=== PATIENT | male | born 1955 | race Caucasian/White ===

== ENCOUNTER 2018-04-02 19:30 | Emergency (ER) | payer MEDICAID ==
[~2018-04-02] VITALS: Ht 177.8 cm; Wt 77.1 kg
[2018-04-02] MEDS ORDERED: SODIUM BICARBONATE 8.4% INJ 50ML SYRINGE IV ONE (19:31)
[2018-04-02] MEDS ORDERED: CALCIUM CHLOR(10%) 100MG/ML 10ML SYRINGE IV ONE (19:31)
[2018-04-02] MEDS ORDERED: ATROPINE SULF 1 MG/10ml SYR IV ONE (19:31)
[2018-04-02] MEDS ORDERED: EPINEPHrine HCL 1 MG/10 ML SYRG IV ONE (19:31)
[2018-04-02] MEDS ORDERED: D5W 5% 100 ML BAG IV ONE (19:31)
[2018-04-02] MEDS ORDERED: SODIUM BICARBONATE 8.4% INJ 50ML SYRINGE ONE (19:41)
[2018-04-02] MEDS ORDERED: NOREPINEPHRINE 8 MG/250ML KIT 250 ML IV ONE (19:48)
[2018-04-02] MEDS ORDERED: EPINEPHrine HCL 1 MG/10 ML SYRG ONE (19:56)
[2018-04-02 19:59] LABS: Basophils # (auto) 0 uL; Eosinophils # (auto) 0 uL; Hemoglobin 14.2 g/dL (13.5-17.5); Neutrophils # (auto) 2.7 uL
[2018-04-02 20:01] LABS: Basophils % (auto) 0.5 % (0.0-2.0); Eosinophils % (auto) 0.5 % (0.0-7.0); Hematocrit 44.8 % (41.0-53.0); Lymphocytes % (auto) 45.9 % (10.0-50.0); Mean Corpuscular Hemoglobin 34.1 pg (28.0-32.0); Mean Corpuscular Hgb Conc. 31.6 g/dL (32.0-36.0); Mean Corpuscular Volume 107.7 fL (80.0-100.0); Monocytes # (auto) 0.7 uL; Monocytes % (auto) 11.4 % (0.0-12.0); Neutrophils % (auto) 41.7 % (37.0-80.0); Nucleated Red Blood Cells % 0.7 %; Platelet Count (auto) 83 10^3/uL (140-450); Red Blood Cells 4.16 10^6/uL (4.5-5.90); Red Cell Distribution Width 14.4 % (11.8-14.3); White Blood Cell 6.4 10^3/uL (4.4-10.8)
[2018-04-02 20:03] VITALS: BP 52/32
[2018-04-02 20:07] LABS: Urine Bacteria NONE SEEN /hpf (None Seen); Urine Blood Negative /uL (Negative); Urine Mucus FEW (None Seen); Urine Specific Gravity 1.024 (1.001-1.035); Urine Sperm PRESENT /hpf (None Seen); Urine WBC 4 /hpf (0 - 3)
[2018-04-02 20:16] LABS: Albumin 3.4 g/dL (3.4-5.0); BUN/Creatinine Ratio 14.8; Calcium 8.9 mg/dL (8.5-10.1); Potassium 4.7 mmol/L (3.5-5.1)
[2018-04-02 20:21] LABS: Bilirubin, Total 2.4 mg/dL (0.2-1.0); Total Protein 7.3 g/dL (6.4-8.2)
[2018-04-02 20:21] LABS: Amphetamine Screen, Urine POSITIVE (NEGATIVE); Barbiturate Scree,Urine NEGATIVE (NEGATIVE); Benzodiazephine Screen, Urine NEGATIVE (NEGATIVE); Cannabinoid Screen, Urine POSITIVE (NEGATIVE); Cocaine Screen, Urine NEGATIVE (NEGATIVE); Opiate Scree,Urine NEGATIVE (NEGATIVE); Phencyclidine Screen, Urine NEGATIVE (NEGATIVE)
[2018-04-02 20:26] LABS: INR 1.46 (0.9-1.15)
[2018-04-02] MEDS ORDERED: NOREPINEPHRINE 8 MG/250ML KIT 250 ML IV SCH (21:00)
== END 2018-04-03 01:39 ==
LOC: ER 19:30
DX: I46.9 Cardiac arrest, cause unspecified (principal); I11.0 Hypertensive heart disease with heart failure; I50.9 Heart failure, unspecified; F41.9 Anxiety disorder, unspecified; F32.9 Major depressive disorder, single episode, unspecified; E11.9 Type 2 diabetes mellitus without complications; E78.5 Hyperlipidemia, unspecified; F20.9 Schizophrenia, unspecified
CPT/HCPCS: 31500; 36415; 36600; 51702; 71045; 80053; 80307; 81001; 82805; 84484; 85025; 85379; 85610; 85730; 92950; 93005; 94761; 99285; J0171; 94002; J7060